=== PATIENT | male | born 1965 | race Caucasian/White ===

== ENCOUNTER → 2021-07-24 | Outpatient (CLI) | payer OTHER ==
[2021-07-24 13:11] LABS: BASO % 1 % (0-3); EOS # 0.2 x10^3/uL (0.0-0.7); EOS % 3 % (0-3); HEMATOCRIT 47.5 % (39.0-53.0); LYMPH # 2.3 x10^3/uL (1.0-4.8); LYMPH % 33 % (24-48); MEAN CORPUSCULAR HEMOGLOBIN 29 pg (25-35); MEAN CORPUSCULAR HGB CONC 34 g/dL (31-37); MEAN CORPUSCULAR VOLUME 86 fL (79-100); MONO # 0.6 x10^3/uL (0.0-1.1); MONO % 8 % (0-9); NEUT % 56 % (31-73); PLATELET COUNT 291 x10^3/uL (140-400); RED BLOOD COUNT 5.56 x10^6/uL (4.30-5.70); RED CELL DISTRIBUTION WIDTH 13.8 % (11.5-14.5); WHITE BLOOD COUNT 7.1 x10^3/uL (4.0-11.0)
[2021-07-24 13:19] LABS: ALBUMIN 3.9 g/dL (3.4-5.0); ALBUMIN/GLOBULIN RATIO 1.1 (1.0-1.7); C REACTIVE PROTEIN 0.6 mg/L (0-3.3); CALCIUM 9.2 mg/dL (8.5-10.1); CREATININE 0.9 mg/dL (0.7-1.3); GFR 87.3; POTASSIUM 4.4 mmol/L (3.5-5.1); TOTAL BILIRUBIN 0.5 mg/dL (0.2-1.0); TOTAL PROTEIN 7.5 g/dL (6.4-8.2)
--- NOTE | 2021-07-24 13:37 | RAD ---
EXAM: Left foot, 3 views. HISTORY: Pain. COMPARISON: None. FINDINGS: 3 views of the left foot are obtained. There is no acute fracture, dislocation or subluxati on. There is severe tarsometatarsal joint space narrowing with degenerative subchondral sclerosis, ledesma bchondral cyst formation and spurring. There are vascular calcifications. There is pes planus. There is a small plantar spur. There is minimal enthesopathy at Achilles tendon insertion. IMPRESSION: 1. Severe midfoot osteoarthritis. 2. Pes planus. 3. Small plantar spur. Electronically signed by: Jillian Steele MD (07/24/2021 1:34 PM) [id number]
[2021-07-24 14:14] LABS: SEDIMENTATION RATE 6 (0-15)
== END ==
LOC: LAB 12:05
PROVIDERS: ATTEND Podiatrist Foot & Ankle Surgery
DX: E11.621 Type 2 diabetes mellitus with foot ulcer (principal); L03.032 Cellulitis of left toe; M19.072 Primary osteoarthritis, left ankle and foot; M21.42 Flat foot [pes planus] (acquired), left foot; M77.32 Calcaneal spur, left foot; M25.872 Other specified joint disorders, left ankle and foot
CPT/HCPCS: 36415; 73630; 80053; 85025; 85651; 86140

== ENCOUNTER → 2021-08-12 | Outpatient (CLI) | payer OTHER ==
--- NOTE | 2021-08-12 15:09 | RAD ---
LOWER EXTREMITY DUPLEX ARTERY ULTRASOUND Indication: Peripheral vascular disease, diabetic foot ulcer Comparison: None. Procedure: Arterial 2D and duplex images are obtained of the lower extremity arteries. Findings: There is mild diffuse atherosclerotic vascular disease. Grayscale imaging. Normal waveform morphology is seen throughout the major arteries of the bilateral lower extremities. Color Doppler im aging demonstrates no high-grade visual stenosis, or major arterial occlusion. No aneurysm is seen. N o focal elevations in velocity suggestive of hemodynamically significant stenosis are identified. IMPRESSION: No sonographic evidence of hemodynamically significant stenosis involving the major arter ies of the bilateral lower extremities Electronically signed by: Toby Ho MD (08/12/2021 3:06 PM) [id number]
== END ==
LOC: US 13:53
PROVIDERS: ATTEND Podiatrist Foot & Ankle Surgery
DX: I73.9 Peripheral vascular disease, unspecified (principal); E11.621 Type 2 diabetes mellitus with foot ulcer; L97.521 Non-pressure chronic ulcer of other part of left foot limited to breakdown of skin
CPT/HCPCS: 93925